=== PATIENT | male | born 2000 | race Caucasian/White ===

== ENCOUNTER → 2024-11-27 | Outpatient (CLI) | payer BC ==
[~2024-11-27] MED LIST: AMPH1CAP14; ISOVUE-370 76% 100ML VIAL ONE
== END ==
LOC: M PLAIMG 09:20
PROVIDERS: ATTEND Otolaryngology
DX: R59.0 Localized enlarged lymph nodes (principal); R92.0 Mammographic microcalcification found on diagnostic imaging of breast
CPT/HCPCS: 70491; Q9967

== ENCOUNTER → 2025-01-08 | Outpatient (CLI) | payer BC ==
[~2025-01-08] MED LIST changes: -ISOVUE-370 76% 100ML VIAL ONE
== END ==
LOC: M RAD 09:16
PROVIDERS: ATTEND Otolaryngology
DX: R59.0 Localized enlarged lymph nodes (principal)